=== PATIENT | female | born 1965 | race Caucasian/White ===

== ENCOUNTER 2020-08-24 10:06 | Outpatient (REF) | payer OTHER, SELFPAY ==
--- NOTE | 2020-08-24 | MM_ITS ---
EXAMINATION: MM SCREENING DIGITAL BREAST TOMOSYNTHESIS, BILATERAL CLINICAL INFORMATION: Screening. Asymptomatic. The lifetime risk of breast cancer based on the Tyrer-Cuzick Model is 9%. COMPARISON: Mammography: 08/14/2019, 08/12/2018 TECHNIQUE: Digital breast tomosynthesis is performed in both the craniocaudal and mediolateral oblique views along with computer-aided detection (CAD). Synthesized 2D images are generated from the tomosynthesis. FINDINGS: There are scattered areas of fibroglandular density (ACR BI-RADS breast composition Category b). There are no significant masses, abnormal calcifications, or other abnormalities. There is small stable circumscribed nodule posterior central 9:00 right breast similar to prior exams. No significant changes. MM/MM tomosynthesis screening BI IMPRESSION: No significant changes from prior exams. ASSESSMENT: BI-RADS 2: Benign RECOMMENDATION: Routine annual mammography screening. This patient's information was entered into a reminder system with a target due date for their next mammogram.
== END 2020-08-24 10:07 | disposition home or self-care (01) ==
LOC: HO.MAMMO 10:06
PROVIDERS: PCP Internal Medicine Endocrinology, Diabetes & Metabolism; Visit Provider Internal Medicine Endocrinology, Diabetes & Metabolism
DX: Z12.31 Encounter for screening mammogram for malignant neoplasm of breast (principal)
CPT/HCPCS: 77063; 77067

== ENCOUNTER 2021-10-10 12:19 | Outpatient (REF) | payer OTHER, SELFPAY ==
--- NOTE | ~2021-10-10 | MM_ITS ---
EXAMINATION: MM SCREENING DIGITAL BREAST TOMOSYNTHESIS, BILATERAL CLINICAL INFORMATION: Screening. Asymptomatic. The lifetime risk of breast cancer based on the Tyrer-Cuzick Model is 8%. COMPARISON: Mammography: 08/24/2020, 08/14/2019, 08/12/2018 TECHNIQUE: Digital breast tomosynthesis is performed in both the craniocaudal and mediolateral oblique views along with computer-aided detection (CAD). Synthesized 2D images are generated from the tomosynthesis. FINDINGS: There are scattered areas of fibroglandular density (ACR BI-RADS breast composition Category b). There are no significant masses, abnormal calcifications, or other abnormalities. Parenchymal pattern is similar to prior studies. There is no developing density or architectural abnormality. The axilla and skin contours are unremarkable. No significant changes. MM/MM tomosynthesis screening BI IMPRESSION: No mammographic evidence of malignancy. ASSESSMENT: BI-RADS 1: Negative RECOMMENDATION: Routine annual mammography screening. This patient's information was entered into a reminder system with a target due date for their next mammogram.
== END 2021-10-10 12:20 | disposition home or self-care (01) ==
LOC: HO.MAMMO 12:19
PROVIDERS: Absent Provider Student in an Organized Health Care Education/Training Program; PCP Physician Assistant Medical; Visit Provider Physician Assistant Medical
DX: Z12.31 Encounter for screening mammogram for malignant neoplasm of breast (principal)
CPT/HCPCS: 77063; 77067

== ENCOUNTER 2022-10-12 12:25 | Outpatient (REF) | payer OTHER, SELFPAY ==
--- NOTE | ~2022-10-12 | MM_ITS ---
EXAMINATION: MM SCREENING DIGITAL BREAST TOMOSYNTHESIS, BILATERAL CLINICAL INFORMATION: Screening. Asymptomatic. The lifetime risk of breast cancer based on the Tyrer-Cuzick Model is 8%. COMPARISON: Mammography: October 10, 2021 and studies dating back to August 07, 2016 TECHNIQUE: Digital breast tomosynthesis is performed in both the craniocaudal and mediolateral oblique views along with computer-aided detection (CAD). Synthesized 2D images are generated from the tomosynthesis. FINDINGS: There are scattered areas of fibroglandular density (ACR BI-RADS breast composition Category b). There are no significant masses, abnormal calcifications, or other abnormalities. MM/MM tomosynthesis screening BI IMPRESSION: No significant changes ASSESSMENT: BI-RADS 1: Negative RECOMMENDATION: Routine annual mammography screening. This patient's information was entered into a reminder system with a target due date for their next mammogram.
== END 2022-10-12 12:26 | disposition home or self-care (01) ==
LOC: HO.MAMMO 12:25
PROVIDERS: Visit Provider Physician Assistant Medical
DX: Z12.31 Encounter for screening mammogram for malignant neoplasm of breast (principal)
CPT/HCPCS: 77063; 77067

== ENCOUNTER 2023-10-18 12:18 | Outpatient (REF) | payer OTHER, SELFPAY | END 2023-10-18 12:19 | disposition home or self-care (01) | LOC: HO.MAMMO 12:18 | PROVIDERS: PCP Physician Assistant Medical; Visit Provider Physician Assistant Medical | DX: Z12.31 Encounter for screening mammogram for malignant neoplasm of breast (principal) | CPT/HCPCS: 77063; 77067 ==

== ENCOUNTER → 2023-10-18 12:30 | Outpatient (BNV) | payer OTHER, SELFPAY | PROVIDERS: PCP Physician Assistant Medical; Visit Provider Radiology Diagnostic Radiology | DX: Z12.31 Encounter for screening mammogram for malignant neoplasm of breast (principal) | CPT/HCPCS: 77063; 77067 ==

== ENCOUNTER 2024-10-21 16:05 | Outpatient (REF) | payer OTHER, SELFPAY ==
--- OUTSIDE RECORDS SUMMARY | 2024-10-21 16:36 | XMS_ITS | Clinical Summary ---
Author Organization [facility] [address] [facility] Address [address] [facility] [place] Phone Care Team Providers Care Cable Installer Repairer Helper Name Role Phone Prasanna Almazan Primary Care Provider [phone] Allergies Active Allergy Reactions Criticality Noted Date Comments Amoxicillin-Pot Clavulanate 09/15/20 05 rash Cephalexin 09/15/2005 Rash Clindamycin Hcl 09/15/2005 Rash Medications Medication Sig Dispensed Refills Start Date End Date Status clobetasoL (TEMOVATE) 0.05 % cream Apply to affected areas twice daily as needed sparingly. 06/27/2024 Active levothyroxine (SYNTHROID, LEVOTHROID) 100 mcg tablet TAKE 1 TABLET BY MOUTH DAILY SUNDAY THROUGH SUNDAY AND ONE-HALF TABLET BY MOUTH ON Sundays06/27/2024 Active Active Problems Problem Noted Date Diagnosed Date Hyperlipidemia LDL goal <130 08/03/2017 Migraine 03/25/2010 Hypothyroid 03/19/2009 Encounters Date Type Department Care Team Description 08/07/2024 2:30 PM EST Consult [facility] [place] [address] [place] [address] Tonny Cordova PA Contusion of right knee, initial encounter (Primary Dx) from Last 3 Months Immunizations Name Administration Dates Next Due Influenza trivalent, 0.5mL, preservative free (Fluarix; FluLaval; Fluzone) ages 6mo and older (Afluria) 3 years and older 05/25/2008,07/24/2007 Td Tetanus diptheria (Tdvax) 7yo and older 08/03 Tdap Tetanus diptheria acell ular pertussis (Boostrix; Adacel) 7yo and older 07/24/2007 Surgical History Surgery Date Site/Laterality Comments TONSILLECTOMY 1999 PROCEDURE: HISTORICAL TONSILLECTOMY COLONOSCOPY 04/19/15 PROCEDURE: HISTORICAL COLONOSCOPY; COMMENT: normal; repeat in 10 yrs MULTIPLE TOOTH EXTRACTIONS PROCEDURE: HISTORICAL DENTAL EXTRACTION Medical History Medical History Date Comments Unspecified hypothyroidism 03/08/2006 DX:Un specified hypothyroidism Depressive disorder, not els ewhere classified 03/19/2009 DX:Depressive disorder, not elsewhere classified Family History Medical History Relation Name Comments Other: alive and well Brother 1 Other: alive and well Brother 2 Other: alive and well Daughter Depression Father skin ca Thyroid disease Mother underactive Thyroid disease Sister 1 underactive Other: alive and well Son Asperg er's Relation Name Status Comments Brother 1 Brother 2 Daughter Father Alive Mother Alive Sister 1 Sister 2 Alive Son Social History Tobacco Use Types Packs/Day Years Used Date Smoking Tobacco: Never Smokeless Tobacco: Never Alcohol Use Standard Drinks/Week Comments Yes 0 (1 standard drink = 0.6 oz pur e alcohol) Sex and Gender Information Value Date Recorded Sex Assigned at Not on file Gender Identity Not on file Sexual Orientation Not on file Job Start Date Occupation Industry Not on file Not on file Not on file Obstetrics History Last Filed Vital Signs Vital Sign Reading Time Taken Comments Blood Pressure 109/70 06/27/2024 8:03 AM EDT Pulse 93 06/27/2024 8:03 AM EDT Temperature - - Respiratory Rate 16 08/07/2024 2:23 PM EST Oxygen Saturation - - Inhaled Oxygen Concentration - - Weight 79.4 kg (175 lb) 08/07/2024 2:23 PM EST Height 165.1 cm (5' 5 ) 08/07/2024 2:23 PM EST Body Mass Index 29.12 08/07/2024 2:23 PM EST Plan of Treatment Health Maintenance Due Date Last Done Comments Breast Cancer Screening 1965 Hepatitis B Vaccines (1 of 3 - 19+ 3-dose series) 1984 Zoster Vaccines (1 of 2) 2015 Depression Screening 09/02/2022 HIV Screening 09/02/2022 Social Influencers of Health Screening 09/02/2022 COVID-19 Vaccine (2 - 2023-2 5 season) 2024 01/28/2021 Influenza Vaccine (#1) 2024 8, 07/24/2007 Colorectal Cancer Screening: Colonoscopy 04/19/2025 04/19/2015 DTaP,Tdap,and Td Vaccines (3 - Td or Tdap) 08/03/2027 08/03/2017, 07/24/2007 Cholesterol Screening (Lipid Panel) 08/13/2028 08/13/2023 Cervical Cancer Screening: HPV 08/27/2028 08/27/2023 RSV Immunization Patients 60 + Years Old (1 - 1-dose 75+ series) 2040 Hepatitis C Screening Completed 03/29/2015 HIB Vaccines Aged Out No longer eligi ble based on patient's age to complete this topic HPV Vaccines Aged Out No longer eligi ble based on patient's age to complete this topic Hepatitis A Vaccines Aged Out No long er eligible based on patient's age to complete this topic IPV Vaccines Aged Out No longer eligi ble based on patient's age to complete this topic MMR Vaccines Aged Out No longer eligi ble based on patient's age to complete this topic Meningococcal ACWY Vaccine Aged Out N o longer eligible based on patient's age to complete this topic Pneumococcal Vaccine: Pediatrics (0 to 5 Years) and At-Risk Patients (6 to 64 Years) Aged Out No longer eligible b ased on patient's age to complete this topic RSV Immunization Patients Under 20 months Aged Out No longer eligible b ased on patient's age to complete this topic Varicella Vaccines Aged Out No longer eligible based on patient's age to complete this topic Procedures Procedure Name Priority Date/Time Associated Diagnosis Comments HPV Routine 08/27/2023 LIPID PANEL Routine 08/13/2023 COLONOSCOPY Routine 04/19/2015 HEPATITIS C SCREENING Routine 03/29/2015 from Last 3 Months or Most Recently Relevant to Health Maintenance Results * Cervical Cancer Screening: HPV (08/27/2023) Cervical Cancer Screening: HPV abstracted, no interpretation Historical Provider MD SERA Stevens * (ABNORMAL) Lipid panel (08/13/2023) [facility] LDL/HDL Ratio 5(A) 0 - 4 Triglycerides 159(A) 0 - 150 mg/dL Cholesterol 303(A) 0 - 200 mg/dL HDL 62 40 mg/dL LDL Cholesterol 210(A) 0 - 100 mg/dL Blood Venous blood specimen / Unknown Historical Provider LAB BLOOD ORDERAB LES * Colonoscopy (04/19/2015) [facility] Colonoscopy abstracted, no interpretation Anatomical Region Laterality Modality Other Historical Provider [facility] MAINTENANC E * Hepatitis C Screening (03/29/2015) [facility] Hepatitis C Screening abstracted Historical Provider [facility] MAINTENANC E from Last 3 Months or Most Recently Relevant to Health Maintenance Care Teams Cable Installer Repairer Helper Relationship Specialty Start Date End Date Prasanna Almazan PA PCP - General Internal Medicine 02/16/21
== END 2024-10-21 16:06 | disposition home or self-care (01) ==
LOC: HO.MAMMO 16:05
PROVIDERS: PCP Physician Assistant Medical; Visit Provider Physician Assistant Medical
DX: Z12.31 Encounter for screening mammogram for malignant neoplasm of breast (principal)
CPT/HCPCS: 77063; 77067

== ENCOUNTER → 2024-10-21 16:30 | Outpatient (BNV) | payer OTHER, SELFPAY | PROVIDERS: PCP Physician Assistant Medical; Visit Provider Internal Medicine | DX: Z12.31 Encounter for screening mammogram for malignant neoplasm of breast (principal) | CPT/HCPCS: 77063; 77067 ==

== ENCOUNTER 2025-05-20 11:08 | Outpatient (AMB) | payer OTHER, SELFPAY ==
--- OUTSIDE RECORDS SUMMARY | 2025-05-20 12:02 | XMS_ITS ---
Author Name [facility] Organization Unknown Care Team Organization Name Specialty Phone Email Start Date End Da te [facility] Prasanna Almazan Primary Care 01/29/2023
--- OUTSIDE RECORDS SUMMARY | 2025-05-20 12:02 | XMS_ITS | Clinical Summary ---
Author Organization [facility] [address] [place] [address] [place] [address] [place] Phone Care Team Providers Care System Admin Name Role Phone Prasanna Almazan Primary Care Provider Un available Allergies Active Allergy Reactions Criticality Noted Date Comments Amoxicillin-Pot Clavulanate 09/15/20 05 rash Cephalexin 09/15/2005 Rash Clindamycin Hcl 09/15/2005 Rash Medications clobetasoL (TEMOVATE) 0.05 % cream Apply to affected areas twice daily as needed sparingly. 06/27/2024 Active levothyroxine (SYNTHROID, LEVOTHROID) 100 mcg tablet TAKE 1 TABLET BY MOUTH DAILY SUNDAY THROUGH SUNDAY AND ONE-HALF TABLET BY MOUTH ON Sundays06/27/2024 Active Active Problems Problem Noted Date Diagnosed Date Hyperlipidemia LDL goal <130 08/03/2017 Migraine 03/25/2010 Hypothyroid 03/19/2009 Immunizations Name Administration Dates Next Due Influenza trivalent, 0.5mL, preservative free (Fluarix; FluLaval; Fluzone) ages 6mo and older (Afluria) 3 years and older 05/25/2008,07/24/2007 Td Tetanus diptheria (Tdvax) 7yo and older 08/03 Tdap Tetanus diptheria acell ular pertussis (Boostrix; Adacel) 7yo and older 07/24/2007 Surgical History Surgery Date Site/Laterality Comments TONSILLECTOMY 2000 PROCEDURE: HISTORICAL TONSILLECTOMY COLONOSCOPY 04/19/15 PROCEDURE: HISTORICAL [...] drink = 0.6 oz pur e alcohol) Comments No Sex and Gender Information Value Date Recorded Sex Assigned at Not on file Legal Sex Female 10:56 PM EST Gender Identity Not on file Sexual Orientation Not on file Obstetrics History Last Filed [...] Last Done Comments Breast Cancer Screening 1965 Pneumococcal Vaccine: 50+ Years (1 of 1 - PCV) 2015 Zoster Vaccines (1 of 2) 2015 HIV Screening 09/02/2022 Social Influencers of Health Screening 09/02/2022 COVID-19 Vaccine (2 - 2023-2 5 season) 2024 01/28/2021 Depression Screening 09/24/2024 Colorectal Cancer Screening: Colonoscopy 04/19/2025 04/19/2015 Influenza Vaccine (#1) 2025 8, 07/24/2007 DTaP,Tdap,and Td Vaccines (3 - Td or Tdap) 08/03/2027 08/03/2017, 07/24/2007 Cholesterol Screening (Lipid Panel) 08/13/2028 08/13/2023 Cervical Cancer Screening: HPV 08/27/2028 08/27/2023 RSV Immunization Adult Patients (1 - 1-dose 75+ series) 2040 Hepatitis C Screening Completed 03/29/2015 HIB Vaccines Aged Out No longer eligi ble based on patient's age to complete this topic HPV Vaccines Aged Out No longer eligi ble based on patient's age to complete this topic Hepatitis A Vaccines Aged Out No long er eligible based on patient's age to complete this topic Hepatitis B Vaccines Aged Out No long er eligible [...] patient's age to complete this topic Meningococcal B Vaccine Aged Out No l onger eligible based on patient's age to complete [...] Cervical Cancer Screening: HPV abstracted, no interpretation us Historical Provider HEALTH MAINTENANCE Final Result * (ABNORMAL) Lipid panel (08/13/2023) LDL/HDL Ratio 5(A) 0 - 4 Triglycerides 159(A) 0 - 150 mg/dL Cholesterol 303(A) 0 - 200 mg/dL HDL 62 >=40 mg/dL LDL Cholesterol 210(A) 0 - 100 mg/dL Blood Venous blood specimen / Unknown Historical Provider LAB BLOOD ORDERABLES Tanna l Result * Colonoscopy (04/19/2015) [facility] Colonoscopy abstracted, no interpretation Anatomical Region Laterality Modality Other [facility] Provider HEALTH MAINTENANCE Final Result * Hepatitis C Screening (03/29/2015) [facility] Hepatitis C Screening abstracted Historical Provider HEALTH MAINTENANCE Final Result from Last 3 Months or Most Recently Relevant to Health Maintenance Insurance [facility] [address] [place] [address] Care Teams System Admin Relationship Specialty Start Date End Date Prasanna Almazan PA PCP - General Internal Medicine 02/16/21
== END 2025-05-20 11:20 | disposition home or self-care (01) ==
LOC: HO.HMGAL 11:08
PROVIDERS: PCP Physician Assistant Medical; Visit Provider Registered Nurse Emergency
DX: J30.89 Other allergic rhinitis (principal)
CPT/HCPCS: 95117; 95165

== ENCOUNTER 2025-06-17 16:08 | Outpatient (AMB) | payer OTHER, SELFPAY ==
--- OUTSIDE RECORDS SUMMARY | 2025-06-17 18:04 | XMS_ITS | Clinical Summary ---
Author Organization [facility] [address] [facility] Address [address] [facility] [place] [address] Phone Care Team Providers Care Apple Picking Supervisor Name Role Phone Prasanna Almazan Primary Care Provider [phone] Allergies Active Allergy Reactions Criticality Noted Date Comments Amoxicillin-Pot Clavulanate 09/15/20 05 rash Cephalexin 09/15/2005 Rash Clindamycin Hcl 09/15/2005 Rash Medications clobetasoL (TEMOVATE) 0.05 % cream Apply to affected areas twice daily as needed sparingly. 4 Active levothyroxine (SYNTHROID, LEVOTHROID) 100 mcg tablet TAKE 1 TABLET BY MOUTH DAILY SUNDAY THROUGH SUNDAY AND ONE-HALF TABLET BY MOUTH ON SUNDAYS 30 tablet 5 025 Active levothyroxine (SYNTHROID, LEVOTHROID) 100 mcg tablet TAKE 1 TABLET BY MOUTH DAILY SUNDAY THROUGH SUNDAY AND ONE-HALF TABLET BY MOUTH ON Sundays 4 025 Discontinued Active Problems Problem Noted Date Diagnosed Date [...] 09/02/2022 Social Influencers of Health Screening 09/02/2022 Depression Screening 09/24/2024 Colorectal Cancer Screening: Colonoscopy 04/19/2025 04/19/2015 COVID-19 Vaccine (2 - 2024-2 6 season) 2025 01/28/2021 Influenza Vaccine (#1) 2025 8, 07/24/2007 DTaP,Tdap,and [...] Final Result * (ABNORMAL) Lipid panel (08/13/2023) [facility] LDL/HDL Ratio 5(A) 0 - 4 Triglycerides 159(A) 0 - 150 mg/dL Cholesterol 303(A) 0 - 200 mg/dL HDL 62 >=40 mg/dL LDL Cholesterol 210(A) 0 - 100 mg/dL Blood Venous blood specimen / Unknown Historical Provider LAB BLOOD ORDERABLES Tanna l Result * Colonoscopy (04/19/2015) [facility] Colonoscopy abstracted, no interpretation Anatomical Region Laterality Modality Other [facility] Provider HEALTH MAINTENANCE Final Result * Hepatitis C Screening (03/29/2015) [facility] Hepatitis C Screening abstracted [facility] Provider HEALTH MAINTENANCE Final Result from Last 3 Months or Most Recently Relevant to Health Maintenance Insurance [facility] Care Teams Apple Picking Supervisor Relationship Specialty Start Date End Date Prasanna Almazan PA PCP - General Internal Medicine 02/16/21
== END 2025-06-17 16:10 | disposition home or self-care (01) ==
LOC: HO.HMGAL 16:08
PROVIDERS: PCP Physician Assistant Medical; Visit Provider Registered Nurse Emergency
DX: J30.89 Other allergic rhinitis (principal)
CPT/HCPCS: 95117; 95165

== ENCOUNTER 2025-07-20 13:49 | Outpatient (AMB) | payer OTHER, SELFPAY ==
--- OUTSIDE RECORDS SUMMARY | 2025-07-20 17:27 | XMS_ITS | Clinical Summary ---
Author Organization [facility] [address] [facility] Address [address] [facility] [place] [address] Phone Care Team Providers Care Medical Dir Name Role Phone Prasanna Almazan Primary Care Provider [phone] Allergies Active Allergy Reactions Criticality Noted Date [...] MOUTH ON SUNDAYS 30 tablet 5 025 Discontinued Active Problems Problem Noted Date Diagnosed Date Hyperlipidemia LDL goal <130 08/03/2017 Migraine 03/25/2010 Hypothyroid 03/19/2009 Immunizations Immunization Administration Dates Next Due Influenza trivalent, 0.5mL, [...] 08/07/2024 2:23 PM EST Plan of Treatment Upcoming Encounters Date Type Department Care Team (Late st Contact Info) Description 08/05/2025 9:00 AM EST Office Visit Adult Medicine [address] [address] Prasanna Almazan PA [address] [place] [phone] Health Maintenance Due Date Last Done Comments [...] Results * Cervical Cancer Screening: HPV (08/27/2023) [facility] Cervical Cancer Screening: HPV abstracted, no interpretation [facility] Provider HEALTH MAINTENANCE Final Result * (ABNORMAL) Lipid panel (08/13/2023) [facility] LDL/HDL Ratio 5(A) 0 - 4 Triglycerides 159(A) 0 - 150 mg/dL Cholesterol 303(A) 0 - 200 mg/dL HDL 62 >=40 mg/dL LDL Cholesterol 210(A) 0 - 100 mg/dL Blood Venous blood specimen / Unknown [facility] Provider LAB BLOOD ORDERABLES Tanna l Result * Colonoscopy (04/19/2015) [facility] Colonoscopy abstracted, no interpretation Anatomical Region Laterality Modality Other [facility] Provider HEALTH MAINTENANCE Final Result * Hepatitis C Screening (03/29/2015) [facility] Hepatitis C Screening abstracted [facility] Provider HEALTH MAINTENANCE Final Result from Last 3 Months or Most Recently Relevant to Health [place] [id number] [facility] Care Teams Medical Dir Relationship Specialty Start Date End Date Prasanna Almazan PA PCP - General Internal Medicine 02/16/21
== END 2025-07-20 13:52 | disposition home or self-care (01) ==
LOC: HO.HMGAL 13:49
PROVIDERS: PCP Physician Assistant Medical; Visit Provider Registered Nurse Emergency
DX: J30.89 Other allergic rhinitis (principal)
CPT/HCPCS: 95117; 95165

== ENCOUNTER 2025-08-12 11:41 | Outpatient (AMB) | payer OTHER, SELFPAY ==
--- OUTSIDE RECORDS SUMMARY | 2025-08-12 22:48 | XMS_ITS | Clinical Summary ---
Author Organization [facility] [address] [place] [address] Address [address] [place] [address] Phone Care Team Providers Care Roll Coating Machine Operator Name Role Phone Prasanna Almazan Primary Care Provider [phone] Allergies Active Allergy Reactions Criticality Noted Date Comments Amoxicillin-Pot Clavulanate 09/15/20 05 rash Cephalexin 09/15/2005 Rash Clindamycin Hcl 09/15/2005 Rash Medications levothyroxine (SYNTHROID, LEVOTHROID) 100 mcg tablet TAKE 1 TABLET BY MOUTH DAILY SUNDAY THROUGH SUNDAY AND ONE-HALF TABLET BY MOUTH ON SUNDAYS 85 tablet 3 08/05/20 25 Active clobetasoL (TEMOVATE) 0.05 % cream Apply to affected areas twice daily as needed sparingly. 06/27/20 24 025 Discontinued(Th erapy completed) levothyroxine (SYNTHROID, LEVOTHROID) 100 mcg tablet TAKE 1 TABLET BY MOUTH DAILY SUNDAY THROUGH SUNDAY AND ONE-HALF TABLET BY MOUTH ON SUNDAYS 30 tablet 06/05/20 25 025 Discontinued levothyroxine (SYNTHROID, LEVOTHROID) 100 mcg tablet TAKE 1 TABLET BY MOUTH DAILY SUNDAY THROUGH SUNDAY AND ONE-HALF TABLET BY MOUTH ON SUNDAYS 30 tablet 07/19/20 25 025 Discontinued(Re order) Active Problems Problem Noted Date Diagnosed Date Hyperlipidemia LDL goal <130 08/03/2017 Migraine 03/25/2010 Hypothyroid 03/19/2009 Encounters Date Type Department Care Team Description 08/05/2025 9:00 AM EST Office Visit Adult Medicine [facility] [address] [phone] Prasanna Almazan PA Hypothyroidism, unspecified type (Primary Dx); Screening for malignant neoplasm of colon; Encounter for screening mammogram for malignant neoplasm of breast; Hyperlipidemia LDL goal <130 from Last 3 Months Immunizations Immunization Administration Dates Next Due Influenza [...] Date Smoking Tobacco: Never Smokeless Tobacco: Never Tobacco Cessation:Counseling Given: Not Answered Alcohol Use Standard Drinks/Week Comments Yes 0 (1 standard drink = 0.6 oz pur e alcohol) Housing Instability Answer Date Recorde d Are you worried that in the next 2 months you may not have stable housing? No 08/04/2025 Food Access & Nutrition Answer Date Rec orded Do you have access to a vari ety of food including fruits and vegetables? Yes 08/04/2025 Health Literacy Answer Date Recorded How often do you need to hav e someone help you when you read instructions, pamphlets, or other written material from your doctor or pharmacy? Never 08/04/2025 Caregiver: How often do you need to have someone help you when you read instructions, pamphlets, or other written material from your doctor or pharmacy? Not on file 08/04/2025 Financial Risk Answer Date Recorded How hard is it for you to pa y for the very basics like food, housing, medical care, and air conditioning / heating? Not very hard 08/04/2025 Transportation Answer Date Recorded Has the lack of transportati on kept you from meetings, work, or from getting things needed for daily living? No Has the lack of transportati on kept you from medical appointments or from getting medications? No 08/04/2025 Social Isolation Answer Date Recorded How often do you feel lonely or isolated from th ose around you? Never 08/04/2025 Food Risk Answer Date Recorded Within the past 12 months we worried whether our food would run out before we got money to buy more. Never true 08/04/2025 Within the past 12 months th e food we bought just didn't last and we didn't have money to get more. Never true 08/04/2025 Dependent Care Answer Date Recorded Do you need help finding or paying for care for your loved ones. For example, child welfare assistant or elderly care for an older adult? No 08/04/2025 Education Answer Date Recorded Do you think completing more education or training, like finishing a GED, going to college, or learning a trade, would be helpful for you? N/A 08/04/2025 Employment and Income Answer Date Recor ded During the last four weeks, have you been actively looking for work? No 08/04/2025 Living Situation Answer Date Recorded What is your living situation? Unrecognized valu e 08/04/2025 Comments No Sex and Gender Information Value Date Recorded Sex Assigned at Not on file Legal Sex Female 10:56 PM EST Gender Identity Not on file Sexual Orientation Not on file Obstetrics History Last Filed Vital Signs Vital Sign Reading Time Taken Comments Blood Pressure 121/80 08/05/2025 9:09 AM EST Pulse 94 08/05/2025 9:09 AM EST Temperature 36 C (96.8 F) 08/05/2025 9:09 AM EST Respiratory Rate 14 08/05/2025 9:09 AM EST Oxygen Saturation 96% 08/05/2025 9:09 AM EST Inhaled Oxygen Concentration - - Weight 79.4 kg (175 lb) 08/07/2024 2:23 PM EST Height 165.1 cm (5' 5 ) 08/05/2025 9:09 AM EST Body Mass Index 29.12 08/07/2024 2:23 PM EST Plan of Treatment Upcoming Encounters Date Type Department Care Team (Late st Contact Info) Description 08/10/2026 7:30 AM EST Office Visit [address] [phone] Prasanna Almazan, CHARISMA [address] [place] [phone] Health Maintenance Due Date Last Done Comments Breast Cancer Screening 1965 Pneumococcal Vaccine: 50+ Years (1 of 1 - PCV) 2015 Zoster Vaccines (1 of 2) 2015 HIV Screening 09/02/2022 Social Influencers of Health Screening 08/04/2026 08/04/2025 DTaP,Tdap,and Td Vaccines (3 - Td or Tdap) 08/03/2027 08/03/2017, 07/24/2007 Cholesterol Screening (Lipid Panel) 08/13/2028 08/13/2023 Cervical Cancer Screening: HPV 08/27/2028 08/27/2023 Colorectal Cancer Screening: Colonoscopy 08/05/2035 08/05/2025, 04/19/2015 RSV Immunization Adult Patients (1 - 1-dose 75+ series) 2040 Influenza Vaccine Discontinued 05/25/2008, 07/24/2007 Hepatitis C Screening Completed 03/29/2015 COVID-19 Vaccine Discontinued 01/28/2021 Depression Screening Completed 08/04/2025 HIB Vaccines Aged Out No longer eligi [...] 20 months Aged Out No longer eligible based on [...] Results * Cervical Cancer Screening: HPV (08/27/2023) [facility] Cervical Cancer Screening: HPV abstracted, no interpretation [facility] Provider HEALTH MAINTENANCE Final Result * (ABNORMAL) Lipid panel (08/13/2023) [facility] LDL/HDL Ratio 5(A) 0 - 4 Triglycerides 159(A) 0 - 150 mg/dL Cholesterol 303(A) 0 - 200 mg/dL HDL 62 >=40 mg/dL LDL Cholesterol 210(A) 0 - 100 mg/dL Blood Venous blood specimen / Unknown Result [facility] Provider LAB BLOOD ORDERABLES Tanna l Result * Colonoscopy (04/19/2015) [facility] Colonoscopy abstracted, no interpretation Anatomical Region Laterality Modality Other [facility] Provider HEALTH MAINTENANCE Final Result * Hepatitis C Screening (03/29/2015) [facility] Hepatitis C Screening abstracted [facility] Provider HEALTH MAINTENANCE Final Result from Last 3 Months or Most Recently Relevant to Health Maintenance Insurance [employer] Care Teams Roll Coating Machine Operator Relationship Specialty Start Date End Date Prasanna Almazan PA PCP - General Internal Medicine 02/16/21
== END 2025-08-12 11:42 | disposition home or self-care (01) ==
LOC: HO.HMGAL 11:41
PROVIDERS: PCP Physician Assistant Medical; Visit Provider Registered Nurse Emergency
DX: J30.89 Other allergic rhinitis (principal)
CPT/HCPCS: 95117; 95165

== ENCOUNTER 2025-09-09 13:04 | Outpatient (AMB) | payer OTHER, SELFPAY ==
--- OUTSIDE RECORDS SUMMARY | 2025-09-09 17:13 | XMS_ITS | Clinical Summary ---
Author Organization [facility] [address] [facility] Address [address] [place], [place] Phone Care Team Providers Care Internal Combustion Engine Inspector Name Role Phone Prasanna Almazan Primary Care Provider [phone] Allergies Active Allergy Reactions Criticality Noted Date Comments Amoxicillin-Pot Clavulanate 09/15/20 05 rash Cephalexin 09/15/2005 Rash Clindamycin Hcl 09/15/2005 Rash Medications levothyroxine (SYNTHROID, LEVOTHROID) 100 mcg tablet TAKE 1 TABLET BY MOUTH DAILY SUNDAY THROUGH SUNDAY AND ONE-HALF TABLET BY MOUTH ON SUNDAYS 85 tablet 3 08/05/2025 Active Active Problems Problem Noted Date Diagnosed Date Hyperlipidemia LDL goal <130 08/03/2017 Migraine 03/25/2010 Hypothyroid 03/19/2009 Encounters Date Type Department Care Team Description 08/31/2025 Telephone Gastroenterology [facility] [address] [phone] Patrizia Fregoso MD 08/19/2025 Telephone Gastroenterology [facility] [address] [phone] Patrizia Fregoso MD 08/05/2025 9:00 AM EST Office Visit Adult [facility] [address] [place] [address] Prasanna Almazan PA Hypothyroidism, unspecified type (Primary [...] for your loved ones. For example, child support agent or elderly care for an older adult? [...] on file Sexual Orientation Not on file Last Filed Vital Signs Vital Sign Reading [...] Description 08/10/2026 7:30 AM EST Office Visit [facility] [address] [phone] Prasanna Almazan PA [facility] [place] [place] [phone] Health Maintenance Due Date Last Done Comments [...] Cervical Cancer Screening: HPV abstracted, no interpretation [facility] Provider HEALTH MAINTENANCE Final Result * (ABNORMAL) Lipid panel (08/13/2023) Pathologist [facility] LDL/HDL Ratio 5(A) 0 - 4 Triglycerides 159(A) 0 - 150 mg/dL Cholesterol 303(A) 0 - 200 mg/dL HDL 62 >=40 mg/dL LDL Cholesterol 210(A) 0 - 100 mg/dL Blood Venous blood specimen / Unknown [facility] Provider LAB BLOOD ORDERABLES Tanna l Result * Colonoscopy (04/19/2015) Colonoscopy abstracted, no interpretation Anatomical Region Laterality Modality Other [facility] Provider HEALTH MAINTENANCE Final Result * Hepatitis C Screening (03/29/2015) Pathologist [facility] Hepatitis C Screening abstracted [facility] Provider HEALTH MAINTENANCE Final Result from Last 3 Months or Most Recently Relevant to Health Maintenance Insurance [employer] Care Teams Internal Combustion Engine Inspector Relationship Specialty Start Date End Date Prasanna Almazan PA PCP - General Internal Medicine 02/16/21
== END 2025-09-09 13:06 | disposition home or self-care (01) ==
LOC: HO.HMGAL 13:04
PROVIDERS: PCP Physician Assistant Medical; Visit Provider Registered Nurse Emergency
DX: J30.89 Other allergic rhinitis (principal)
CPT/HCPCS: 95117; 95165